=== PATIENT | female | born 1950 | race Two or more races ===

== ENCOUNTER 2018-08-09 08:12 | Outpatient (CLI) | payer OTHER | END 2018-08-09 08:24 | disposition home or self-care (01) | LOC: NUCLEAR 08:12 | DX: D35.1 Benign neoplasm of parathyroid gland (principal) | CPT/HCPCS: 78072; A9500 ==

== ENCOUNTER 2019-06-14 16:28 | Outpatient (CLI) | payer OTHER | END 2019-06-14 16:42 | disposition home or self-care (01) | LOC: RAD 16:28 | DX: M79.671 Pain in right foot (principal) ==

== ENCOUNTER 2021-01-16 07:36 | Outpatient (CLI) | payer OTHER | END 2021-01-16 07:47 | disposition home or self-care (01) | LOC: SONOGRAMA 07:36 | PROVIDERS: ATTEND Surgery | DX: R10.2 Pelvic and perineal pain (principal) ==

== ENCOUNTER 2021-05-01 05:28 | Emergency (ER) | payer OTHER ==
[~2021-05-01] VITALS: Ht 162.6 cm; Wt 75.7 kg
[2021-05-01] MEDS ORDERED: SYNTHROID50 MCG (05:42)
[2021-05-01] MEDS ORDERED: OMEPRAZOLE (05:43)
[2021-05-01] MEDS ORDERED: VITAMINA C (05:44)
[2021-05-01] MEDS ORDERED: VITAMINA D (05:45)
[2021-05-01] MEDS ORDERED: [UNRECOGNIZED DRUG - OTHER] (05:47)
[2021-05-01] MEDS ORDERED: HYOSCYAMINE0.125 M1 (05:52)
== END 2021-05-01 14:27 | disposition designated cancer center or children's hospital (05) ==
LOC: ER 05:28
DX: S02.2XXA Fracture of nasal bones, initial encounter for closed fracture (principal); S06.5X1A Traumatic subdural hemorrhage with loss of consciousness of 30 minutes or less, initial encounter; M54.2 Cervicalgia; R42 Dizziness and giddiness; W22.8XXA Striking against or struck by other objects, initial encounter; Y93.89 Activity, other specified; Y92.012 Bathroom of single-family (private) house as the place of occurrence of the external cause; Y99.8 Other external cause status; Z03.818 Encounter for observation for suspected exposure to other biological agents ruled out

== ENCOUNTER 2021-06-11 08:00 | Outpatient (CLI) | payer OTHER ==
[~2021-06-11 08:00] MED LIST: HYOSCYAMINE0.125 M1; OMEPRAZOLE; SYNTHROID50 MCG; VITAMINA C; VITAMINA D; [UNRECOGNIZED DRUG - OTHER]
== END 2021-06-11 08:30 | disposition home or self-care (01) ==
LOC: PPH VACUNA 08:00
DX: Z23 Encounter for immunization (principal)

== ENCOUNTER 2021-11-18 07:33 | Outpatient (CLI) | payer OTHER | END 2021-11-18 07:38 | disposition home or self-care (01) | LOC: TOM 07:33 | PROVIDERS: ATTEND Surgery | DX: R10.2 Pelvic and perineal pain (principal) ==

== ENCOUNTER 2022-01-22 08:00 | Outpatient (CLI) | payer OTHER | END 2022-01-22 08:30 | disposition home or self-care (01) | LOC: PPH VACUNA 08:00 | PROVIDERS: ATTEND Emergency Medicine Pediatric Emergency Medicine | DX: Z23 Encounter for immunization (principal) ==

== ENCOUNTER 2022-04-02 08:54 | Outpatient (CLI) | payer OTHER | END 2022-04-02 08:55 | disposition home or self-care (01) | LOC: NUCLEAR 08:54 | PROVIDERS: ATTEND Internal Medicine | DX: I87.2 Venous insufficiency (chronic) (peripheral) (principal) ==

== ENCOUNTER 2022-07-15 12:30 | Outpatient (CLI) | payer OTHER | END 2022-07-15 12:40 | disposition home or self-care (01) | LOC: PPH VACUNA 12:30 | PROVIDERS: ATTEND Emergency Medicine Pediatric Emergency Medicine | DX: Z23 Encounter for immunization (principal) ==

== ENCOUNTER 2022-12-20 12:46 | Outpatient (CLI) | payer OTHER | END 2022-12-20 12:55 | disposition home or self-care (01) | LOC: RAD 12:46 | PROVIDERS: ATTEND Internal Medicine | DX: Z96.653 Presence of artificial knee joint, bilateral (principal) ==

== ENCOUNTER 2022-12-27 07:55 | Outpatient (CLI) | payer OTHER | END 2022-12-27 07:56 | disposition home or self-care (01) | LOC: NUCLEAR 07:55 | PROVIDERS: ATTEND Internal Medicine | DX: I11.9 Hypertensive heart disease without heart failure (principal) ==

== ENCOUNTER 2024-05-04 09:06 | Outpatient (CLI) | payer OTHER | END 2024-05-04 09:15 | disposition home or self-care (01) | LOC: SONOGRAMA 09:06 | DX: N20.0 Calculus of kidney (principal) ==

== ENCOUNTER 2024-05-16 09:51 | Outpatient (CLI) | payer OTHER | END 2024-05-16 09:55 | disposition home or self-care (01) | LOC: TOM 09:51 | PROVIDERS: ATTEND Internal Medicine | DX: N20.1 Calculus of ureter (principal) ==

== ENCOUNTER 2025-07-18 07:03 | Outpatient (CLI) | payer OTHER | END 2025-07-18 07:04 | disposition home or self-care (01) | LOC: NUCLEAR 07:03 | PROVIDERS: ATTEND Internal Medicine | DX: R74.8 Abnormal levels of other serum enzymes (principal); Z85.3 Personal history of malignant neoplasm of breast | CPT/HCPCS: 78306; A9503 ==